=== PATIENT | female | born 1995 | race Caucasian/White ===

== ENCOUNTER → 2019-07-12 | Outpatient (CLI) | payer OTHER ==
[~2019-07-12] MED LIST: ERYT.5TO LEFTEYE; Junel Fe 1-201 EACH PO; MINO100 PO; Zofran Odt4 MG SL
== END | disposition home or self-care (01) ==
LOC: LAB EV 18:49 → LAB SHORT 18:49
DX: R10.9 Unspecified abdominal pain (principal)
CPT/HCPCS: 87086